=== PATIENT | male | born 1990 | race Hispanic/Latino ===

== ENCOUNTER 2016-06-29 19:58 | Emergency (ER) | payer OTHER ==
[~2016-06-29] VITALS: Ht 182.9 cm; Wt 97.7 kg
[2016-06-29 20:05] VITALS: BP 132/78; PULSE 69; RESP 17; O2SAT 99
--- NOTE | 2016-06-29 20:42 | ED.REPORT ---
HPI-General Illness Date of Service Jun 29, 2016 ED Provider: Christian Rosenbaum MD 25 year old male presents to the ER accompanied by his and child complaining of chest pain onset today. Associated symptoms include occasional cough, nasal congestion, posterior nasal drainage, and tonsillar swelling. He was seen recently at [facility] for similar where it was thought that symptoms were of some allergic etiology. Patient denies fever, and chills. 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 Nursing Notes Stated Complaint: CHEST PAIN Chief Complaint: General Complaint Nursing Notes Reviewed: Yes Allergies: Coded Allergies: No Known Allergies (Unverified , 06/29/16) Scheduled PRN Benzonatate (Tessalon Perle) 100 Mg Capsule 100 MG PO TID PRN PRN For Cough General Time Seen by MD: 20:29 Chief Complaint Chest pain Hx Obtained From: Patient, Spouse Arrived By: Walk-in Sudden in Onset?: No Onset Occurred: 13 - 16 hours ago Symptom Duration: Since onset Location: : Chest Quality: Painful Severity: Current: Mild Severity: Maximum: Moderate Associated with: Reports: Congestion, Cough, Nasal discharge, Denies: Fever Pertinent Negative: Pt denies other symptoms Similar Sx Previous: Yes Past Medical History Past Medical History Healthy Smoking History Unknown if Ever Smoker Social History Other Social History: Good social support, Ambulatory Status Independent Review of Systems Full Review of Systems Constitutional: Denies: Chills, Fever Ears / Nose / Throat: Reports: Nasal congestion, Sore throat, Throat swelling Respiratory: Reports: Non-productive cough, Denies: Hemoptysis Cardiovascular: Reports: Chest pain GI: Denies: Nausea, Vomiting Complete sys rev & neg: except as marked. Physical Exam Vital Signs Vital Signs Date Time Temp Pulse Resp B/P Pulse Ox O2 Delivery O2 Flow Rate FiO2 06/29/16 21:51 69 20 136/82 98 Room Air 06/29/16 20:05 36.2 69 17 132/78 99 Room Air Initial VS: Reviewed General/Constitutional: Well-developed, Well-nourished Head / Eyes: Atraumatic, Normocephalic Neck: Supple, Non-tender, Full range of motion Abdomen / GI: Soft, Non-tender, No guarding, No rebound, No distention Extremities: Vascular intact, Neuro intact, No swelling, No tenderness Skin: Warm, Dry, No cyanosis Neurologic: Alert, Oriented, Nonfocal ENT: Airway patent, Mucous membranes moist, No peritonsillar abscess Pharynx / Tonsils / Uvula: Positive: Pharyngeal erythema (posterior) Interpretation & Diagnostics Lab Results Interpretation Result Diagram: 06/29/16205106/29/162051 Test 06/29/16 20:52 White Blood Count 6.9th/mm3 (3.8-10.1) Red Blood Count 5.05mil/mm3 (4.40-5.80) Hemoglobin 15.0g/dL (13.8-17.2) Hematocrit 44.6% (41.0-50.0) Mean Corpuscular Volume 88.3fL (81-100) Mean Corpuscular Hemoglobin 29.7pg (27.0-35.0) Mean Corpuscular Hemoglobin Concent 33.6% (32.0-37.0) Red Cell Distribution Width 12.8% (12.3-15.4) Platelet Count 233bil/L (150-400) Neutrophils (%) (Auto) 52.5% (40-74) Lymphocytes (%) (Auto) 35.7% (14-46) Monocytes (%) (Auto) 9.8% (4-12) Eosinophils (%) (Auto) 1.6% (0-5) Basophils (%) (Auto) 0.3% (0-3) Sodium Level 136mEq/L (134-144) Potassium Level 3.9mEq/L (3.5-5.2) Chloride Level 99mEq/L (97-108) Carbon Dioxide Level 22mmol/L (18-29) Blood Urea Nitrogen 13mg/dL (6-20) Creatinine 0.78mg/dL (0.76-1.27) Estimat Glomerular Filtration Rate 128mL/min (>59) Glucose Level 113mg/dL (60-99) Calcium Level 8.8mg/dL (8.5-10.1) Magnesium Level 2.0mg/dL (1.6-2.6) Total Bilirubin 0.3mg/dL (0.0-1.2) Aspartate Amino Transf (AST/SGOT) 25U/L (0-50) Alanine Aminotransferase (ALT/SGPT) 19U/L (0-44) Alkaline Phosphatase 74U/L (25-150) Troponin T 0.010ug/L (0.0-0.011) Total Protein 7.2g/dL (6.4-8.4) Albumin 4.3g/dL (3.4-5.0) Hold Pena Top Tube Received (Received) ECG Interpretation Time: 21:25 Interpreted by: ED physician Normal ECG Interpretation: Normal rate, Normal sinus rhythm, No acute ischemic changes, Normal QRS, Normal axis, Normal intervals, No change from prior ECGs, Adequate tracing X-Ray Chest Interpretation Chest Xray Interpretation: IMPRESSION: No acute disease Dictated by: Michael Veras M.D. on 06/29/2016 at 20:58 Approved by: Michael Veras M.D. on 06/29/2016 at 20:59 View: Portable, 1 view Interpretation / Wet Read by: Interpret - Radiologist Re-Eval/Medical Decision Med Decision/Clinical Course Patient is a 25-year-old male who presents with complaints of cough, upper respiratory infection and chest pain in association with coughing. Here in the emergency department the patient is afebrile stable vital signs and in no apparent distress. EKG was obtained and interpreted by myself as documented above. CXR: Obtained, reviewed and interpreted by myself shows no evidence of acute infiltrates, effusions or pneumothorax. Cardiac and mediastinal silhouette normal. No bony or soft tissue abnormalities. Laboratory studies notable as below: CBC normal CMP normal Troponin negative Patient's cough was treated with Tessalon. At this time presentation unconvincing for acute coronary syndrome, pulmonary embolus, pneumonia or pneumothorax. This patient most consistent with muscular chest pain in the setting of upper respiratory infection and coughing. Patient has been prescribed Tessalon and will take ibuprofen additionally. Follow-up and return precautions were reviewed in detail and he is discharged in good condition. Source of Hx: Old records Time of Eval: 21:34 Re-Evaluation/Progress Note: Discussed lab and radiology results and plan to discharge. Patient is amenable to the plan. Return precautions given. All other questions addressed. Counseled Regarding: Diagnosis, Lab results, Need for follow-up, When/why to return to ED Discharge & Departure Primary Impression: Pharyngitis Pharyngitis/tonsillitis etiology: other specified organisms Qualified Code: J02.8 - Acute pharyngitis due to other specified organisms Additional Impressions: Cough Chest wall pain Disposition: Home Discharge Condition All VS Reviewed: Yes Condition: Stable Additional Instructions: Thank you for seeking care at emergency room. It is difficult for us to make definitive diagnoses in the ED but we believe that you are experiencing pharyngitis and cough. Our primary goal today in the ED was to evaluate you for any life-threatening conditions. Your evaluation was reassuring. You will be discharged with a prescription for Tessalon perle. Please take as directed for cough. Take Sudafed as needed for congestion throughout the day. Buy a respirator. You should follow-up with your primary doctor this week. You should return to the ED immediately if you develop fever, chills, productive cough, shortness of breath, worsening chest pain, or any other concerning signs or symptoms. Thank you for letting us partake in your care today. Referrals: REBA FISHER (PCP) Luly Attestation Portions of this note were transcribed by Eduardo Ward. I, Dr. Rosenbaum, personally performed the history, physical exam and medical decision-making; I reviewed and confirmed the accuracy of the information in the transcribed note. Signed by: Luly Baker, 06/29/2016 and 22:01 copies to: REBA FISHER Beck O MD Jun 29, 2016 20:42 EDUARDO WARD Jun 29, 2016 21:27
[2016-06-29 21:00] LABS: BASOPHILS % (AUTO) 0.3 % (0-3); EOSINOPHILS % (AUTO) 1.6 % (0-5); MONOCYTES % (AUTO) 9.8 % (4-12); Mean Corpuscular Hemoglobin 29.7 pg (27.0-35.0); Mean Corpuscular Volume 88.3 fL (81-100); NEUTROPHILS % (AUTO) 52.5 % (40-74); Platelet Count 233 bil/L (150-400)
--- NOTE | 2016-06-29 21:00 | DRSVH ---
PROCEDURE: X-RAY CHEST ONE VIEW, PORTABLE ([id number]) INDICATIONS: chest pain TECHNIQUE: One view of the chest was acquired. COMPARISON: None. FINDINGS: Surgical changes and devices: None. Lungs and pleura: No pleural effusions or pneumothorax. Lungs are clear. Mediastinum: Mediastinal contours appear normal. Heart size is normal. Bones and chest wall: No suspicious bony lesions. Overlying soft tissues appear unremarkable. IMPRESSION: No acute disease Dictated by: Michael Veras M.D. on 06/29/2016 at 20:58 Approved by: Michael Veras M.D. on 06/29/2016 at 20:59
[2016-06-29 21:21] LABS: TROPONIN T 0.01 ug/L (0.0-0.011)
[2016-06-29] MEDS ORDERED: BENZ-12 PO (21:35)
[2016-06-29 21:51] VITALS: BP 136/82; PULSE 69; RESP 20; O2SAT 98
== END 2016-06-29 21:52 | disposition home or self-care (01) ==
LOC: SED 19:58
DX: J02.8 Acute pharyngitis due to other specified organisms (principal); R05 Cough; R07.89 Other chest pain; R09.81 Nasal congestion